=== PATIENT | male | born 1995 | race Caucasian/White ===

== ENCOUNTER 2017-07-05 21:50 | Emergency (ER) | payer OTHER ==
[~2017-07-05] VITALS: Ht 175.3 cm; Wt 61.2 kg
[~2017-07-05 21:50] MED LIST: NOHOMEMEDICATIONS
[2017-07-05] MEDS ORDERED: LIDOCAINE VISC100 ML SWISH&SPIT (23:30)
[2017-07-05] MEDS ORDERED: AMOXICILLIN 50500 MG PO (23:30)
[2017-07-05] MEDS ORDERED: TRAMADOL 50 MG50 MG PO (23:30)
[2017-07-05] MEDS ORDERED: TYLENOL EXTRA500 MG PO (23:31)
[2017-07-05] MEDS ORDERED: IBUPROFEN 600600 M1 PO (23:31)
[2017-07-05 23:43] VITALS: BP 129/79
== END 2017-07-05 23:44 | disposition home or self-care (01) ==
LOC: M.ERS 21:50
DX: K08.89 Other specified disorders of teeth and supporting structures (principal); F17.210 Nicotine dependence, cigarettes, uncomplicated